=== PATIENT | female | born 1945 | race Two or more races ===

== ENCOUNTER 2020-04-01 14:36 | Outpatient (CLI) | payer OTHER | END 2020-04-01 15:55 | disposition home or self-care (01) | LOC: PPH VACUNA 14:36 | PROVIDERS: ATTEND Emergency Medicine Pediatric Emergency Medicine | DX: Z23 Encounter for immunization (principal) ==

== ENCOUNTER → 2020-04-22 08:00 | Outpatient (CLI) | payer OTHER | END | disposition home or self-care (01) | LOC: PPH VACUNA 08:00 | PROVIDERS: ATTEND Emergency Medicine Pediatric Emergency Medicine | DX: Z23 Encounter for immunization (principal) ==

== ENCOUNTER 2020-12-15 11:10 | Outpatient (CLI) | payer OTHER | END 2020-12-15 11:20 | disposition home or self-care (01) | LOC: PPH VACUNA 11:10 | PROVIDERS: ATTEND Emergency Medicine Pediatric Emergency Medicine | DX: Z23 Encounter for immunization (principal) ==